=== PATIENT | female | born 1970 | race Caucasian/White ===

== ENCOUNTER 2024-06-03 20:32 | Emergency (ER) | payer OTHER, SELFPAY ==
[2024-06-03] VITALS (15 sets, daily range): BP systolic 75–98; BP diastolic 44–66; PULSE 72–78
--- NOTE | 2024-06-03 20:50 | ED.GENMED ---
History of Present Illness
General
Chief Complaint: Headache
Source: patient and family (Daughter at bedside)
Exam Limitations: none
Time Seen by Provider: 06/03/24 20:48
Nursing documentation reviewed up to this point in time: agreed with
History of Present Illness
History of Present Illness:
53-year-old female with no past medical history, takes no meds here for a left posterior base of skull area sharp stabbing headache constant over the past 4 days. Daughter states she finally convinced her to come in tonight. As a patient was
ambulating down the hallway to her the room she became faint and was lowered to the floor. She did not lose consciousness but she did become pale. She was placed on a stretcher and taken to her room.
She remained alert and oriented the entire time. She denies chest pain or trouble breathing.
She states she has had sharp stabbing pains in the left only mastoid area every few minutes for past 2 days, denies any pain at this time.
She boy n/v/d/c
Past History
Past History
ED Past Medical History: None
ED Past Surgical History: None
Social History
Tobacco: Non-smoker
Alcohol: Occasional
Personal: Single
Living: with family
Review of Systems
Review of Systems
Allergies reviewed?: Yes
All Other Systems: ROS reviewed and negative except as documented in HPI and ROS
Constitutional: Denies fever or fatigue
EENT: Denies sore throat
Respiratory: Denies trouble breathing
Cardiac: Reports diaphoresis; Denies chest pain, palpitations or syncope
ABD/GI: Reports nausea (states she felt nauseous in Triage but didn't tell anyone); Denies abdominal pain, vomiting, diarrhea, constipated, bloody stools, black stools or anorexia
: Denies dysuria, difficulty voiding or urgency
Musculoskeletal: Reports no symptoms
Skin: Reports no symptoms
Neurological: Reports headache (sharp shooting pains left occiput behind and below ear past 2 days); Denies dizzy, weakness or numbness
Phy Exam
Physical Exam
Physical Exam:
GENERAL: Pale, clammy, faint, oriented, continues to converse
CONSTITUTIONAL: Afebrile.
Head: Nontender scalp to percussion.
EYES: PERRL, conjunctivae normal
ENMT: moist mucus membranes, Pharynx nl
RESPIRATORY: Regular respirations, nonlabored, lungs clear.
CARDIOVASCULAR: Regular rate and rhythm, no murmurs, no rubs.
GI: Soft, nontender, normal BS
MUSCULOSKELETAL: Moves with ease. Well perfused.
SKIN: Warm, moist, pale
PSYCH: Normal mood and affect. Well kept, interactive and appropriate
NEUROLOGIC: Awake, faint, oriented. No focal neurological deficits
Course
Orders/Labs/Results
Orders:
Orders
06/03/24 20:48
Electrocardiogram (*1) Urgent
Reason for Study: Syncope
EKG- Treatment ONCE
06/03/24 20:50
CT Head W/o Iv Contrast Urgent
Comment:
Reason For Exam: Left posterior headache
0.9% Sodium Chloride 1000 ml [Nss] 1,000 ml IV BOLUS
06/03/24 20:55
Complete Blood Count/With Diff Urgent
Comprehensive Metabolic Panel Urgent
Manual Differential Urgent
06/03/24 22:30
Orthostatic VS- Treatment ONCE
06/03/24 23:23
Gabapentin [Neurontin] 100 mg PO NOW STA
Abnormal Lab Results
06/03/24
20:55
WBC 3.4 L 10^3/uL
(4.8-10.8)
RBC 3.57 L 10^6/uL
(4.20-5.40)
Hgb 11.7 L g/dL
(12.0-16.0)
Hct 33.2 L %
(37.0-47.0)
MCH 32.8 H pg
(27.0-31.0)
MPV 10.6 H fL
(7.4-10.4)
Segmented Neutrophils 40 L %
(42-75)
Total Protein 6.1 L g/dl
(6.3-8.2)
06/03/24 20:55
06/03/24 20:55
Vital Signs
Initial and Last Documented VS:
Initial Vital Signs
Temp Pulse Resp BP Pulse Ox
98.3 F 81 20 96/64 98
06/03/24 20:38 06/03/24 20:38 06/03/24 20:38 06/03/24 20:38 06/03/24 20:38
Last Documented Vital Signs
Temp Pulse Resp BP Pulse Ox
98.3 F 71 8 98/65 98
06/03/24 20:38 06/04/24 00:30 06/04/24 00:30 06/04/24 00:30 06/04/24 00:15
Procedures
Digital Block
Location of injection for digital block: other (Greater occipital nerve block)
Indiction for Digital Block: pain relief
Type of anesthesia: other (2.5 cc Marcaine, 2.5 cc Lidocaine 1% Without Epi)
Additional information:
after identifying the point of origination of stabbing pains, area cleansed with alcohol wipe, 4 ml of 50% Marcaine and 50% Lidocaine w/o epi injected locally.
MDM/Problems Addressed
Differential Diagnosis Includes:
cephalgia, occipital neuralgia
dehydration, vasovagal near syncope
MDM/Problems Addressed:
53-year-old female with no past medical history, takes no meds here for a left posterior base of skull area sharp stabbing headache constant over the past 4 days. Daughter states she finally convinced her to come in tonight. As a patient was
ambulating down the hallway to her the room she became faint and was lowered to the floor. She did not lose consciousness but she did become pale. She was placed on a stretcher and taken to her room.
She remained alert and oriented the entire time. She denies chest pain or trouble breathing.
She states she has had sharp stabbing pains in the left only mastoid area every few minutes for past 2 days, denies any pain at this time.
She boy n/v/d/c
BP 80/48 HR 49
EKG Sinus bradycardia
Bedside glucose 90
9:00 p.m.
CBC No clinically significant abnormality
CMP: Normal
Pt feeling 'much better' BP 93/63 HR 52
Pt states under a lot of stress as she is moving to the [place] and movers coming in 2 days.
No head pain at this time
10:00 p.m.
BP 75/44 HR 68 Pt still feeling better. States her BP is usually very low.
To CT scan
10:45 p.m.
After 1 L IVF's
Orthostatics negative
Head CT normal.
Little relief after occipital block, states still there but not as bad
Near syncope most likely vasovagal as she was nauseous and having head pain
11:59 p.m.
BP 101/62 HR 80
Pt feels better states she is ready to go home. ambulating well with steady gait, denies lightheadedness/dizziness.
Rx for Gabapentin sent to her pharmacy for the occipital neuralgia, the greater occipital block gave little relief.
*Critical Care Note
Total Time (30-74mins, 75-104mins- exclusive of procedures): Not Applicable
ED Attending Note
-
Portions of this chart may have been created with voice recognition software.� Occasional wrong word or��sound alike� substitutions may have occurred due to the inherent limitations of voice recognition software.
Discharge Plan
Departure
Patient Disposition: Home (Routine Discharge)
Date of Disposition: 06/04/24
Time of Disposition: 00:17
Patient with high blood pressure during this ER visit?: No
Condition: Good
Discharge Problem:
Occipital neuralgia of left side, Vasovagal near syncope
Instructions: Headache, Adult (DC), Vasovagal Response (DC), Stress
Prescriptions:
New
gabapentin 100 mg capsule
100 mg PO TID Qty: 21 0RF
Referrals:
April Ramos CRNP [Family Provider] - As needed
Activity Restrictions/Additional Instructions:
As we discussed, I sent a prescription to your pharmacy for the gabapentin 100 mg to take 3 times a day to see if it helps the nerve pain in your scalp.
So you may also alternate ibuprofen with Tylenol and see if it helps
Stress reduction may also help.
Interventions
Interventions:
*Risk Screen - Suicide Last Done: 06/03/24 20:38
*General Assessment Last Done: 06/03/24 20:38
*Neglect/Abuse Screening Last Done: 06/03/24 20:38
ED- Fall Risk Assessment Last Done: 06/03/24 20:38
*ED COVID-19 Vaccine History Last Done: 06/03/24 20:38
*Nursing Disposition Last Done: 06/04/24 00:35
ED- Neurological Assessment Last Done: 06/03/24 20:54
Discharge Date and Time
Discharge Date/Time: 06/04/24 00:36
Print Language: LATVIAN
[2024-06-03 20:51] LABS: Glucose - Point of Care 90 mg/dl (70-99)
[2024-06-03] MEDS: NSS 1000 IV (21:02)
[2024-06-03 21:13] LABS: Hematocrit 33.2 % (37.0-47.0); Hemoglobin 11.7 g/dL (12.0-16.0); Mean Corp Hgb Conc. 35.2 g/dL (33.0-37.0); Mean Corpuscular Hgb 32.8 pg (27.0-31.0); Mean Platelet Volume 10.6 fL (7.4-10.4); Platelet Count 187 10^3/uL (130-400); Red Blood Cell Count 3.57 10^6/uL (4.20-5.40); Red Cell Dist. Width 13.1 % (11.5-14.5); White Blood Cell Count 3.4 10^3/uL (4.8-10.8)
[2024-06-03 21:14] LABS: Absolute Neutrophils -Man Diff 1.4 10^3/uL (1.4-6.5); Anisocytosis 1+; Atypical Lymphocytes 16 %; Band Neutrophils 3 % (0-3); Eosinophils 2 % (0-6); Lymphocytes 31 % (20-51); Monocytes 8 % (2-9); Normal RBC Morphology No; Platelets Checked Yes; Poikilocytosis 1+; Segmented Neutrophils 40 % (42-75)
[2024-06-03 21:16] LABS: Burr Cells Slight; Ovalocytes Slight; Total Cells Counted 100
[2024-06-03 21:21] LABS: ALT (SGPT) 17 U/L (0-35); AST (SGOT) 28 U/L (14-36); Albumin 4.1 g/dl (3.5-5.0); Alkaline Phosphatase 50 U/L (38-126); Blood Urea Nitrogen 12 mg/dl (7-17); Calcium 8.8 mg/dl (8.4-10.2); Carbon Dioxide 24 mmol/L (22-30); Chloride 105 mmol/L (98-107); Glucose 88 mg/dl (70-99); Sodium 139 mmol/L (135-145); Total Bilirubin 0.3 mg/dl (0.2-1.3); Total Protein 6.1 g/dl (6.3-8.2); eGFR > 60.00
[2024-06-04] VITALS: BP 101/62
[2024-06-04 00:15] VITALS: BP 98/65
[2024-06-04 00:30] VITALS: BP 98/65
[2024-06-04] MEDS: NEURONTIN 100 MG PO (00:31)
== END 2024-06-04 00:36 | disposition home or self-care (01) ==
LOC: EMR 20:32
PROVIDERS: Registered Nurse; EMERGENCY PHYSICIAN Emergency Medicine; FAMILY PHYSICIAN Nurse Practitioner Adult Health
DX: M54.81 Occipital neuralgia (principal); R55 Syncope and collapse
CPT/HCPCS: 64405; 99284; 96360; 70450; 80053; 82962; 85025; 93005